=== PATIENT | female | born 1980 | race Two or more races ===

== ENCOUNTER → 2016-11-08 | Outpatient (CLI) | payer OTHER ==
[2016-11-08 10:15] LABS: Basophils # (auto) 0 uL; Basophils % (auto) 0.3 % (0.0-2.0); DEFINITIVE VIEW TRANSMISSION; Eosinophils # (auto) 0 uL; Eosinophils % (auto) 0.4 % (0.0-7.0); Hematocrit 36.8 % (36.0-46.0); Hemoglobin 11.9 g/dL (12.2-16.2); Lymphocytes # (auto) 1.3 uL; Mean Corpuscular Hgb Conc. 32.3 g/dL (32.0-36.0); Mean Corpuscular Volume 77.5 fL (80.0-100.0); Monocytes # (auto) 0.3 uL; Monocytes % (auto) 4.5 % (0.0-12.0); Neutrophils # (auto) 4.9 uL; Neutrophils % (auto) 74.8 % (37.0-80.0); Platelet Count (auto) 434 10^3/uL (140-450); Red Cell Distribution Width 14.1 % (11.6-16.0); White Blood Cell 6.5 10^3/uL (4.4-10.8)
== END | disposition home or self-care (01) ==
LOC: LAB 09:19
PROVIDERS: ATTEND Specialist
DX: Z34.80 Encounter for supervision of other normal pregnancy, unspecified trimester (principal)
CPT/HCPCS: 36415; 83036; 85025; 86762; 86850; 86900; 86901; 87086; 87340

== ENCOUNTER → 2017-04-11 | Outpatient (CLI) | payer OTHER, MEDICAID ==
[2017-04-11 12:06] LABS: Basophils # (auto) 0 uL; Basophils % (auto) 0.3 % (0.0-2.0); Eosinophils # (auto) 0.1 uL; Hemoglobin 11.7 g/dL (12.2-16.2); Lymphocytes # (auto) 1.5 uL; Mean Platelet Volume 7.2 fL (6.9-10.8)
[2017-04-11 12:09] LABS: Eosinophils % (auto) 0.9 % (0.0-7.0); Hematocrit 34.8 % (36.0-46.0); Lymphocytes % (auto) 22.1 % (10.0-50.0); Mean Corpuscular Hemoglobin 27.5 pg (28.0-32.0); Mean Corpuscular Hgb Conc. 33.7 g/dL (32.0-36.0); Mean Corpuscular Volume 81.6 fL (80.0-100.0); Monocytes # (auto) 0.3 uL; Monocytes % (auto) 4.9 % (0.0-12.0); Neutrophils % (auto) 71.8 % (37.0-80.0); Nucleated Red Blood Cells % 0.1 %; Platelet Count (auto) 334 10^3/uL (140-450); Red Cell Distribution Width 13.8 % (11.8-14.3)
[2017-04-11 13:04] LABS: Albumin 2.4 g/dL (3.4-5.0); BUN/Creatinine Ratio 10.5; Bilirubin, Total 0.1 mg/dL (0.2-1.0); Calcium 8.1 mg/dL (8.5-10.1); Potassium 3.7 mmol/L (3.5-5.1); Total Protein 6.7 g/dL (6.4-8.2); Uric Acid 4.7 mg/dL (2.6-6.0)
== END | disposition home or self-care (01) ==
LOC: LAB 11:25
PROVIDERS: ATTEND Specialist
DX: O10.913 Unspecified pre-existing hypertension complicating pregnancy, third trimester (principal); Z3A.00 Weeks of gestation of pregnancy not specified
CPT/HCPCS: 36415; 80053; 84550; 85025

== ENCOUNTER → 2017-04-15 | Outpatient (CLI) | payer OTHER, MEDICAID | END | disposition home or self-care (01) | LOC: LAB 09:42 | PROVIDERS: ATTEND Specialist | DX: O10.913 Unspecified pre-existing hypertension complicating pregnancy, third trimester (principal); Z3A.00 Weeks of gestation of pregnancy not specified | CPT/HCPCS: 84156 ==

== ENCOUNTER 2017-05-15 10:50 | Observation (INO) | payer OTHER, MEDICAID ==
[~2017-05-15] VITALS: Ht 160 cm; Wt 98.4 kg
[2017-05-15] MEDS ORDERED: PRENCAP61 PO (11:18)
[2017-05-15] MEDS ORDERED: ASPI81CH45 PO (11:21)
[2017-05-15] MEDS ORDERED: D5W/LACTATED RINGERS 1,000 ML IV SCH (13:16)
[2017-05-15 13:23] LABS: Urine Bilirubin Negative (Negative); Urine Blood Negative /uL (Negative); Urine Color Yellow (Yellow); Urine Glucose Normal (Normal); Urine Ketone 1+ (Negative); Urine Nitrite Negative (Negative); Urine RBC <1 /hpf (0 - 4); Urine Squamous Epithelial Cell FEW /hpf (<5); Urine Urobilinogen Normal (Negative); Urine pH 6.5 (5.0-8.0)
[2017-05-15 13:23] LABS: Basophils # (auto) 0 uL; Basophils % (auto) 0.5 % (0.0-2.0); Eosinophils # (auto) 0 uL; Eosinophils % (auto) 0.2 % (0.0-7.0); Hematocrit 37.7 % (36.0-46.0); Hemoglobin 12.5 g/dL (12.2-16.2); Lymphocytes # (auto) 1.5 uL; Lymphocytes % (auto) 19.9 % (10.0-50.0); Mean Corpuscular Hemoglobin 27.6 pg (28.0-32.0); Mean Corpuscular Hgb Conc. 33.1 g/dL (32.0-36.0); Mean Corpuscular Volume 83.2 fL (80.0-100.0); Mean Platelet Volume 7.4 fL (6.9-10.8); Monocytes # (auto) 0.3 uL; Monocytes % (auto) 3.9 % (0.0-12.0); Neutrophils # (auto) 5.8 uL; Neutrophils % (auto) 75.5 % (37.0-80.0); Platelet Count (auto) 319 10^3/uL (140-450); White Blood Cell 7.7 10^3/uL (4.4-10.8)
[2017-05-15] MEDS ORDERED: LABETALOL HCL 200 MG TAB PO ONE (13:30)
[2017-05-15 13:35] LABS: INR 0.87 (0.9-1.15); Partial Thromboplastin Time 28.8 sec (22.64-33.71); Prothrombin Time 9.5 sec (9.37-12.3)
[2017-05-15] MEDS ORDERED: LACTATED RINGER'S 1,000 ML IV ONE (13:45)
[2017-05-15 14:01] LABS: Albumin 2.6 g/dL (3.4-5.0); BUN/Creatinine Ratio 15.2; Bilirubin, Total 0.2 mg/dL (0.2-1.0); Calcium 8.7 mg/dL (8.5-10.1); Potassium 3.7 mmol/L (3.5-5.1); Total Protein 7.1 g/dL (6.4-8.2); Uric Acid 5.3 mg/dL (2.6-6.0)
== END 2017-05-15 15:05 | disposition home or self-care (01) | DRG 782 ==
LOC: LDRP 10:50
PROVIDERS: ADMIT Specialist; ATTEND Specialist
DX: O62.9 Abnormality of forces of labor, unspecified (principal); O13.9 Gestational [pregnancy-induced] hypertension without significant proteinuria, unspecified trimester; Z3A.36 36 weeks gestation of pregnancy
CPT/HCPCS: 36415; 59025; 76818; 80053; 81001; 81002; 84550; 85025; 85610; 85730; G0378

== ENCOUNTER 2017-05-17 09:00 | Observation (INO) | payer OTHER, MEDICAID ==
[~2017-05-17] VITALS: Ht 160 cm; Wt 98.4 kg
[~2017-05-17 09:00] MED LIST: ASPI81CH45 PO; PRENCAP61 PO
[2017-05-17] MEDS ORDERED: LABE200T18 PO (09:30)
== END 2017-05-17 12:15 | disposition home or self-care (01) | DRG 782 ==
LOC: LDRP 09:00
PROVIDERS: ADMIT Obstetrics & Gynecology; ATTEND Obstetrics & Gynecology
DX: O13.3 Gestational [pregnancy-induced] hypertension without significant proteinuria, third trimester (principal); Z3A.37 37 weeks gestation of pregnancy
CPT/HCPCS: 59025; 81002; 84156; G0378

== ENCOUNTER 2017-05-20 13:52 | Observation (INO) | payer OTHER, MEDICAID ==
[~2017-05-20 13:52] MED LIST changes: -ASPI81CH45 PO; +LABE200T18 PO
== END 2017-05-20 16:05 | disposition home or self-care (01) | DRG 782 ==
LOC: LDRP 13:52
PROVIDERS: ADMIT Obstetrics & Gynecology; ATTEND Obstetrics & Gynecology
DX: O13.3 Gestational [pregnancy-induced] hypertension without significant proteinuria, third trimester (principal); Z3A.37 37 weeks gestation of pregnancy
CPT/HCPCS: 59025; 76818; 81002; G0378

== ENCOUNTER 2017-05-22 10:00 | Observation (INO) | payer OTHER, MEDICAID ==
[~2017-05-22] VITALS: Ht 160 cm; Wt 98.9 kg
== END 2017-05-22 11:45 | disposition home or self-care (01) | DRG 782 ==
LOC: LDRP 10:00
PROVIDERS: ADMIT Specialist; ATTEND Specialist
DX: O36.5930 Maternal care for other known or suspected poor fetal growth, third trimester, not applicable or unspecified (principal); Z3A.37 37 weeks gestation of pregnancy
CPT/HCPCS: 59025; 76818; 81002; G0378

== ENCOUNTER 2017-05-23 08:59 | Observation (INO) | payer OTHER, MEDICAID ==
[~2017-05-23] VITALS: Ht 160 cm; Wt 98.9 kg
[2017-05-24] MEDS ORDERED: DOCU-94 PO (05:41)
== END 2017-05-23 10:29 | disposition home or self-care (01) | DRG 782 ==
LOC: LDRP 08:59
PROVIDERS: ADMIT Specialist; ATTEND Specialist
DX: O36.5930 Maternal care for other known or suspected poor fetal growth, third trimester, not applicable or unspecified (principal); O62.9 Abnormality of forces of labor, unspecified; Z3A.38 38 weeks gestation of pregnancy
CPT/HCPCS: 59025; 76818; 81002; G0378

== ENCOUNTER 2017-05-24 04:09 | Inpatient (IN) | payer OTHER, MEDICAID ==
[2017-05-24] VITALS (11 sets, daily range): BP systolic 100–134; BP diastolic 62–86
[~2017-05-24] VITALS: Ht 160 cm; Wt 98.9 kg
[2017-05-24] MEDS ORDERED: LACTATED RINGER'S 1,000 ML IV SCH (04:17)
[2017-05-24 04:53] LABS: Basophils # (auto) 0 uL; Basophils % (auto) 0.5 % (0.0-2.0); Eosinophils # (auto) 0 uL; Eosinophils % (auto) 0.5 % (0.0-7.0); Hematocrit 34.6 % (36.0-46.0); Hemoglobin 11.3 g/dL (12.2-16.2); Lymphocytes # (auto) 1.9 uL; Lymphocytes % (auto) 21.6 % (10.0-50.0); Mean Corpuscular Hemoglobin 27.5 pg (28.0-32.0); Mean Corpuscular Hgb Conc. 32.8 g/dL (32.0-36.0); Mean Corpuscular Volume 83.7 fL (80.0-100.0); Mean Platelet Volume 7.4 fL (6.9-10.8); Monocytes # (auto) 0.5 uL; Monocytes % (auto) 5.3 % (0.0-12.0); Neutrophils # (auto) 6.3 uL; Neutrophils % (auto) 72.1 % (37.0-80.0); Platelet Count (auto) 288 10^3/uL (140-450); Red Cell Distribution Width 14.3 % (11.8-14.3); White Blood Cell 8.8 10^3/uL (4.4-10.8)
[2017-05-24 05:10] LABS: Albumin 2.3 g/dL (3.4-5.0); Calcium 8.4 mg/dL (8.5-10.1); Potassium 3.8 mmol/L (3.5-5.1)
[2017-05-24 05:11] LABS: BUN/Creatinine Ratio 17.6
[2017-05-24 05:12] LABS: Urine Bilirubin Negative (Negative); Urine Blood Negative /uL (Negative); Urine Color Yellow (Yellow); Urine Glucose Normal (Normal); Urine Ketone Negative (Negative); Urine Mucus FEW (None Seen); Urine Nitrite Negative (Negative); Urine RBC 2 /hpf (0 - 4); Urine Squamous Epithelial Cell MANY /hpf (<5); Urine Urobilinogen Normal (Negative)
[2017-05-24 05:14] LABS: INR 0.86 (0.9-1.15); Partial Thromboplastin Time 29.6 sec (22.64-33.71); Prothrombin Time 9.4 sec (9.37-12.3)
[2017-05-24 05:16] LABS: Bilirubin, Total 0.2 mg/dL (0.2-1.0); Total Protein 6.5 g/dL (6.4-8.2)
[2017-05-24] MEDS ORDERED: DOCU-94 PO (05:41)
[2017-05-24] MEDS: LACTATED RINGER'S 1,000 ML IV SCH ×2 (08:00→16:40)
[2017-05-24] MEDS ORDERED: SUCCINYLCHOLINE CHLORIDE 20 MG/ML 10ML VIAL IV ONE (08:11)
[2017-05-24] MEDS ORDERED: MORPHINE SULF(PF) 0.5MG/ML 10ML VIAL ONE (08:15)
[2017-05-24] MEDS ORDERED: fentaNYL CITRATE 100 MCG/2 ML VL ONE (08:15)
[2017-05-24] MEDS ORDERED: ceFAZolin 1GM VL ONE (08:47)
[2017-05-24] MEDS ORDERED: OXYTOCIN 10 UNIT/ML 10ML VIAL ONE (08:47)
[2017-05-24] MEDS ORDERED: HYDROmorphone HCL 2 MG/ML VL IV PRN (10:00)
[2017-05-24] MEDS ORDERED: ONDANSETRON HCL 4 MG/2 ML VIAL IV PRN ×2 (10:00)
[2017-05-24] MEDS ORDERED: diphenhdrAMINE HCL 50 MG/1 ML VL IV PRN (10:00)
[2017-05-24] MEDS ORDERED: NALOXONE HCL 0.4 MG/ML VIAL IV PRN (10:00)
[2017-05-24] MEDS: LABETALOL HCL 200 MG TAB PO SCH ×2 (10:50→21:54)
[2017-05-24] MEDS: KETOROLAC TROMETH 30 MG/ML 1ML VIAL IV SCH ×3 (12:00→23:40)
[2017-05-24] MEDS: ceFAZolin 1GM/50ML 50 ML IV SCH (16:40)
[2017-05-25] VITALS (7 sets, daily range): BP systolic 104–140; BP diastolic 67–88
[2017-05-25] MEDS: ceFAZolin 1GM/50ML 50 ML IV SCH ×2 (01:00→09:00)
[2017-05-25] MEDS: LACTATED RINGER'S 1,000 ML IV SCH ×3 (01:46→17:34)
[2017-05-25 06:53] LABS: Basophils # (auto) 0 uL; Basophils % (auto) 0.4 % (0.0-2.0); Eosinophils # (auto) 0.1 uL; Eosinophils % (auto) 0.9 % (0.0-7.0); Hematocrit 32.8 % (36.0-46.0); Hemoglobin 10.8 g/dL (12.2-16.2); Lymphocytes # (auto) 1.3 uL; Lymphocytes % (auto) 19.3 % (10.0-50.0); Mean Corpuscular Hemoglobin 27.6 pg (28.0-32.0); Mean Corpuscular Hgb Conc. 32.9 g/dL (32.0-36.0); Mean Corpuscular Volume 84.1 fL (80.0-100.0); Mean Platelet Volume 7.1 fL (6.9-10.8); Monocytes # (auto) 0.4 uL; Monocytes % (auto) 5.2 % (0.0-12.0); Neutrophils # (auto) 5.1 uL; Neutrophils % (auto) 74.2 % (37.0-80.0); Platelet Count (auto) 279 10^3/uL (140-450); Red Cell Distribution Width 14.2 % (11.8-14.3); White Blood Cell 6.8 10^3/uL (4.4-10.8)
[2017-05-25] MEDS ORDERED: HYDROcodone-ACET 5/325MG TAB PO PRN ×4 (07:15→12:45)
[2017-05-25] MEDS ORDERED: SIMETHICONE 80 MG CHEWABLE TABLET PO PRN (07:15)
[2017-05-25] MEDS ORDERED: IBUPROFEN 800 MG TAB PO PRN (07:15)
[2017-05-25] MEDS ORDERED: DOCUSATE SOD 100 MG CAP PO SCH (10:00)
[2017-05-25] MEDS: LABETALOL HCL 200 MG TAB PO SCH ×2 (10:15→22:59)
[2017-05-25] MEDS: IBUPROFEN 800 MG TAB PO PRN ×2 (14:26→22:32)
[2017-05-25] MEDS: DOCUSATE SOD 100 MG CAP PO SCH (22:32)
[2017-05-26] VITALS: BP 102/55
[2017-05-26 04:00] VITALS: BP 114/70
[2017-05-26 07:31] VITALS: BP_SYST 107; BP_SYST 108; BP_DIAS 59; BP_DIAS 79
[2017-05-26] MEDS: IBUPROFEN 800 MG TAB PO PRN ×3 (08:52→16:54)
[2017-05-26] MEDS: DOCUSATE SOD 100 MG CAP PO SCH ×2 (09:53→21:39)
[2017-05-26 11:39] VITALS: BP 113/73
[2017-05-26] MEDS: LABETALOL HCL 200 MG TAB PO SCH ×2 (11:45→21:42)
[2017-05-26 15:35] VITALS: BP 118/68
[2017-05-26 20:00] VITALS: BP 127/78
[2017-05-27] VITALS: BP 116/74
[2017-05-27 04:00] VITALS: BP 115/71
[2017-05-27 07:55] VITALS: BP 121/86
[2017-05-27] MEDS: DOCUSATE SOD 100 MG CAP PO SCH (09:51)
[2017-05-27] MEDS: LABETALOL HCL 200 MG TAB PO SCH (09:51)
[2017-05-27] MEDS: IBUPROFEN 800 MG TAB PO PRN (09:51)
[2017-05-27 11:30] VITALS: BP 125/85
== END 2017-05-27 11:40 | disposition home or self-care (01) | DRG 765 ==
LOC: LDRP 04:09
PROVIDERS: ADMIT Specialist; ATTEND Specialist
PROC: 10D00Z1 Extraction of Products of Conception, Low, Open Approach (ICD-10-PCS; principal; 2017-05-24 08:31)
DX: O34.211 Maternal care for low transverse scar from previous cesarean delivery (principal); O36.5930 Maternal care for other known or suspected poor fetal growth, third trimester, not applicable or unspecified; K66.0 Peritoneal adhesions (postprocedural) (postinfection); Z3A.38 38 weeks gestation of pregnancy; Z37.0 Single live birth; O99.62 Diseases of the digestive system complicating childbirth
CPT/HCPCS: 36415; 51702; 59025; 80053; 80307; 81001; 85025; 85610; 85730; 86850; 86900; 86901; 96365; 96366; 96375; J0330; J0690; J1885; J2590

== ENCOUNTER → 2020-10-18 | Outpatient (CLI) | payer OTHER ==
[~2020-10-18] MED LIST changes: +DOCU-94 PO; -LABE200T18 PO; +LABE200T7 PO
[2020-10-18 09:43] LABS: Basophils # (auto) 0 10 ^3/uL (0-0.2); Eosinophils # (auto) 0.1 10 ^3/uL (0-0.8); Lymphocytes # (auto) 1.6 10 ^3/uL (0.4-5.4); Monocytes # (auto) 0.3 10 ^3/uL (0-1.3); Nucleated Red Blood Cells % 0.3 %; White Blood Cell 5.6 10^3/uL (4.4-10.8)
[2020-10-18 09:46] LABS: Basophils % (auto) 0.4 % (0.0-2.0); Eosinophils % (auto) 1.7 % (0.0-7.0); Hematocrit 40.5 % (36.0-46.0); Hemoglobin 13.4 g/dL (12.2-16.2); Lymphocytes % (auto) 29.4 % (10.0-50.0); Mean Corpuscular Hemoglobin 25.1 pg (28.0-32.0); Monocytes % (auto) 5.4 % (0.0-12.0); Neutrophils # (auto) 3.5 10 ^3/uL (1.6-8.6); Neutrophils % (auto) 63.1 % (37.0-80.0); Platelet Count (auto) 434 10^3/uL (140-450); Red Blood Cells 5.32 10^6/uL (4.0-5.20); Red Cell Distribution Width 15.3 % (11.8-14.3)
[2020-10-18 10:36] LABS: Albumin 3.4 g/dL (3.4-5.0); Potassium 3.6 mmol/L (3.5-5.1)
[2020-10-18 10:44] LABS: BUN/Creatinine Ratio 11.7; Bilirubin, Total 0.3 mg/dL (0.2-1.0); Total Protein 7.6 g/dL (6.4-8.2)
== END | disposition home or self-care (01) ==
LOC: LAB 08:56
PROVIDERS: ATTEND Nurse Practitioner Family
DX: Z13.1 Encounter for screening for diabetes mellitus (principal); Z13.220 Encounter for screening for lipoid disorders; Z13.228 Encounter for screening for other metabolic disorders; I10 Essential (primary) hypertension; E55.9 Vitamin D deficiency, unspecified
CPT/HCPCS: 36415; 80053; 80061; 82306; 83036; 84443; 85025

== ENCOUNTER → 2021-09-05 | Outpatient (CLI) | payer OTHER ==
[2021-09-05 09:47] LABS: Urine Bacteria NONE SEEN /hpf (None Seen); Urine Blood TRACE /uL (Negative); Urine Mucus FEW (None Seen); Urine Specific Gravity 1.024 (1.001-1.035); Urine WBC 1 /hpf (0 - 5)
[2021-09-05 10:06] LABS: Basophils # (auto) 0 10 ^3/uL (0-0.2); Basophils % (auto) 0.4 % (0.0-2.0); Eosinophils # (auto) 0.1 10 ^3/uL (0-0.8); Hematocrit 37.2 % (36.0-46.0); Hemoglobin 12.2 g/dL (12.2-16.2); Lymphocytes # (auto) 1.6 10 ^3/uL (0.4-5.4); Lymphocytes % (auto) 32.8 % (10.0-50.0); Mean Corpuscular Hemoglobin 24.9 pg (28.0-32.0); Mean Corpuscular Hgb Conc. 32.9 g/dL (32.0-36.0); Mean Corpuscular Volume 75.8 fL (80.0-100.0); Monocytes # (auto) 0.3 10 ^3/uL (0-1.3); Monocytes % (auto) 5.8 % (0.0-12.0); Nucleated Red Blood Cells % 0.1 %; Red Blood Cells 4.91 10^6/uL (4.0-5.20); Red Cell Distribution Width 15.6 % (11.8-14.3); White Blood Cell 4.9 10^3/uL (4.4-10.8)
[2021-09-05 10:27] LABS: Potassium 4.1 mmol/L (3.5-5.1)
[2021-09-05 10:42] LABS: BUN/Creatinine Ratio 11.3; Bilirubin, Total 0.2 mg/dL (0.2-1.0); Calcium 8.4 mg/dL (8.5-10.1); Total Protein 6.9 g/dL (6.4-8.2)
== END | disposition home or self-care (01) ==
LOC: LAB 09:07
PROVIDERS: ATTEND Nurse Practitioner Family
DX: Z13.21 Encounter for screening for nutritional disorder (principal); E86.0 Dehydration; F41.8 Other specified anxiety disorders; Z13.228 Encounter for screening for other metabolic disorders; Z13.29 Encounter for screening for other suspected endocrine disorder; E78.5 Hyperlipidemia, unspecified
CPT/HCPCS: 36415; 80053; 80061; 81001; 82306; 83036; 84443; 85025; 87086